=== PATIENT | male | born 1990 | race Caucasian/White ===

== ENCOUNTER 2016-12-28 20:59 | Emergency (ER) | payer OTHER ==
[~2016-12-28] VITALS: Ht 185.4 cm; Wt 83.0 kg
[~2016-12-28 20:59] MED LIST: KEFLEX500 M1 PO; MOTRIN600 MG PO; NORCO 7.5/325 T1 TAB PO; TETRACYCLINE
[2016-12-28] MEDS ORDERED: NO HOME MEDICATION XX (21:16)
== END 2016-12-28 22:14 ==
LOC: EDMED 20:59
DX: S76.311A Strain of muscle, fascia and tendon of the posterior muscle group at thigh level, right thigh, initial encounter (principal); Z88.0 Allergy status to penicillin; X50.9XXA Other and unspecified overexertion or strenuous movements or postures, initial encounter; Y93.02 Activity, running; Y92.89 Other specified places as the place of occurrence of the external cause